=== PATIENT | female | born 1980 | race Caucasian/White ===

== ENCOUNTER 2019-07-05 05:23 | Day surgery (SDC) | payer OTHER ==
[2019-07-04 19:05] VITALS: BMI 29.9
[2019-07-05] MEDS ORDERED: LIDOCAINE HCL/PF 2% SDV 5ML VIAL ONE (07:36)
[2019-07-05] MEDS ORDERED: MIDAZOLAM HCL 2 MG/2 ML SINGLE DOSE VIAL ONE (07:37)
[2019-07-05] MEDS ORDERED: PROPOFOL 20 ML ONE ×2 (07:37)
--- NOTE | 2019-07-05 07:47 | HP ---
Admitting History and Physical - Admission Chief Complaint: Prolonged menses History of Present Illness: 39 yo Para 3 with 3 prior c-sections, is pre op for endometrial ablation. She's been experiencing prolonged menses associated with anemia. History Source: Patient Limitations to Obtaining History: No Limitations - Past Medical History ...LMP: 06/12/19 ...: No ...Para: 3 Heme/Onc: Yes: Anemia - Past Surgical History Past Surgical History: Yes: - Smoking History Smoking history: Never smoked - Alcohol/Substance Use Hx Alcohol Use: No Home Medications - Allergies Allergies/Adverse Reactions: Allergies Allergy/AdvReac Type Severity Reaction Status Date / Time No Known Allergies Allergy Verified 07/05/19 06:47 - Home Medications Home Medications: Ambulatory Orders NK [No Known Home Medication] 05/16/19 Family Medical History Family History: Unremarkable Review of Systems - Review of Systems Constitutional: denies: Weakness Eyes: denies: Blurred Vision HENT: reports: No Symptoms Neck: reports: No Symptoms Cardiovascular: denies: Chest Pain, Palpitations, Shortness of Breath Respiratory: denies: SOB on Exertion Gastrointestinal: denies: Abdominal Pain, Nausea, Vomiting Genitourinary: reports: No Symptoms Breasts: reports: No Symptoms Reported Musculoskeletal: reports: No Symptoms Neurological: reports: No Symptoms Psychiatric: reports: No Symptoms Pain Intensity: 0 Physical Examination Vital Signs: Vital Signs Temperature 98.8 F 07/05/19 06:36 Pulse Rate 71 07/05/19 06:36 Respiratory Rate 18 07/05/19 06:36 Blood Pressure 120/73 07/05/19 06:36 O2 Sat by Pulse Oximetry (%) 100 07/05/19 06:38 Constitutional: No: No Distress Eyes: Yes: Conjunctiva Clear HENT: Yes: Atraumatic Neck: Yes: Supple Cardiovascular: Yes: Regular Rate and Rhythm Respiratory: Yes: Regular Gastrointestinal: Yes: Normal Bowel Sounds Musculoskeletal: Yes: WNL Extremities: Yes: WNL Neurological: Yes: Alert, Oriented ...Motor Strength: WNL Psychiatric: Yes: Alert, Oriented Problem List - Problems (1) Menorrhagia Problems reviewed: Yes Code(s): N92.0 - EXCESSIVE AND FREQUENT MENSTRUATION WITH REGULAR CYCLE Qualifiers: Menorrahagia type: with regular cycle Qualified Code(s): N92.0 - Excessive and frequent menstruation with regular cycle (2) Anemia Problems reviewed: Yes Code(s): D64.9 - ANEMIA, UNSPECIFIED Qualifiers: Iron deficiency anemia type: chronic blood loss Assessment/Plan Menorrhagia Anemia Pre op for endometrial ablation Consent signed Anesthesia to see patient
[2019-07-05] MEDS ORDERED: KETOROLAC TROMETHAMINE 30 MG/1 ML VIAL ONE ×2 (07:59→08:25)
[2019-07-05] MEDS ORDERED: DEXAMETHASONE SOD PHOSPHATE 4 MG/1 ML VIAL ONE (07:59)
[2019-07-05] MEDS ORDERED: ONDANSETRON 4 MG/2 ML VIAL IVPUSH PRN (08:49)
[2019-07-05] MEDS ORDERED: oxyCODONE HCL 5 MG TABLET PO PRN (08:49)
[2019-07-05] MEDS ORDERED: ACETAMINOPHEN 1000 MG/100 ML VIAL (NON FORMULARY) IVPB ONE ×2 (08:50→09:30)
--- NOTE | 2019-07-05 08:52 | OP ---
Operative Note - Note: Operative Date: 07/05/19 Pre-Operative Diagnosis: Menorrhagia Operation: Hysteroscopic endometrial ablation Post-Operative Diagnosis: Same as Pre-op Surgeon: Jazlyn Gaona Anesthesia: General Specimens Removed: None Estimated Blood Loss (mls): 20
[2019-07-05] MEDS ORDERED: LACTATED RINGERS SOLUTION 1,000 ML IV SCH (09:00)
[2019-07-05] MEDS ORDERED: oxyCODONE HCL 5 MG TABLET ONE (12:43)
[2019-07-05] MEDS ORDERED: ONDANSETRON 4 MG/2 ML VIAL ONE (13:00)
[2019-07-05] MEDS ORDERED: oxyCODONE HCL 5 MG TABLET PO ONE (13:30)
[2019-07-05 20:24] VITALS: BP 126/74; PULSE 62; TEMP 94.6
--- NOTE | 2019-07-16 16:21 | OP ---
DATE OF OPERATION: 07/05/2019 PREOPERATIVE DIAGNOSIS: Menorrhagia associated with anemia. POSTOPERATIVE DIAGNOSIS: Menorrhagia associated with anemia. PROCEDURE: Hysteroscopic endometrial ablation. SURGEON: Jazlyn Gaona MD ANESTHESIA: General. COMPLICATIONS: None. ESTIMATED BLOOD LOSS: 5 mL. DESCRIPTION OF PROCEDURE: Patient was taken to the operating room where general anesthesia was administered. Patient was then placed in lithotomy position. She was then prepped and draped in proper sterile fashion. A weighted speculum was placed in the vagina. The anterior lip of the cervix was grasped with a single-tooth tenaculum. Upon activation of the machine, the hysteroscope was then gently introduced into the uterine cavity and hysteroscopy was initiated. The endometrial cavity was visualized; there were several polyps noted in the cavity. Once hysteroscopy was completed, we proceeded with the actual ablation. The ablation procedure continued until complete blanching of the cavity. Upon completion of the procedure, the instrument were removed as indicated. The patient was taken out of lithotomy position. She was taken to PACU in stable condition. JAZLYN GAONA M.D. [id number] MTDD
== END 2019-07-05 17:30 | disposition home or self-care (01) ==
LOC: JASU-SURG 05:23
PROVIDERS: ATTEND Obstetrics & Gynecology
PROC: 0U5B8ZZ Destruction of Endometrium, Via Natural or Artificial Opening Endoscopic (ICD-10-PCS; principal; 2019-07-05 07:30)
DX: N92.0 Excessive and frequent menstruation with regular cycle (principal); D64.9 Anemia, unspecified; N84.0 Polyp of corpus uteri
CPT/HCPCS: 84703; 94760; J0131

== ENCOUNTER 2020-10-10 18:40 | Emergency (ER) | payer OTHER ==
[2020-10-10 18:56] VITALS: BP 133/94; PULSE 78; TEMP 98.7; BMI 28.8
[2020-10-10] MEDS ORDERED: IBUPROFEN 400 MG TABLET (FP) PO ONE ×2 (19:08→19:11)
[2020-10-10] MEDS ORDERED: METHOCARBAMOL 500 MG TABLET PO ONE (19:08)
[2020-10-10] MEDS ORDERED: METHOCARBAMOL 500 MG TABLET ONE (19:11)
== END 2020-10-10 20:30 | disposition home or self-care (01) ==
LOC: JERFT 18:40
DX: M62.830 Muscle spasm of back (principal)
CPT/HCPCS: 72100-TC-FY; 99284-25

== ENCOUNTER 2021-03-25 23:50 | Observation (INO) | payer OTHER ==
[2021-03-26 00:08] VITALS: BMI 29.0
[2021-03-26] MEDS ORDERED: ACETAMINOPHEN 500 MG TABLET (FP) PO ONE (00:41)
[2021-03-26 01:53] LABS: BASO % 0.6 % (0-2.0); EOS % 1.1 % (0-4.5); HEMOGLOBIN 12.4 GM/dL (10.7-15.3); LYMPH % 23.1 % (8-40); MCH 28.8 pg (25.7-33.7); MCHC 33.4 g/dl (32.0-36.0); NEUT % 69.2 % (42.8-82.8); PLATELET COUNT 380 10^3/uL (134-434); RDW 13.3 % (11.6-15.6); WHITE BLOOD COUNT 13.1 K/mm3 (4.0-10.0)
[2021-03-26 02:12] LABS: CHLORIDE 106 mmol/L (98-107); SODIUM 138 mmol/L (136-145)
[2021-03-26 02:14] LABS: ALBUMIN 3.7 g/dl (3.4-5.0); BLOOD UREA NITROGEN 21.3 mg/dL (7-18); CALCIUM 10.3 mg/dL (8.5-10.1); CO2 25 mmol/L (21-32)
[2021-03-26 02:15] LABS: GLUCOSE,RANDOM 90 mg/dL (74-106)
[2021-03-26 02:17] LABS: CREATININE 0.8 mg/dL (0.55-1.3); SGOT/AST 9 U/L (15-37); SGPT/ALT 29 U/L (13-61)
[2021-03-26 02:19] LABS: BILIRUBIN,TOTAL 0.1 mg/dL (0.2-1); TOT PROT 7.5 g/dl (6.4-8.2)
[2021-03-26 02:20] LABS: ALK PHOS 74 U/L (45-117)
[2021-03-26] MEDS ORDERED: ASPIRIN 81 MG CHEWABLE TABLETS PO ONE ×2 (02:31)
[2021-03-26 02:45] LABS: ANION GAP 6 MMOL/L (8-16)
[2021-03-26] MEDS ORDERED: ASPIRIN 81 MG CHEWABLE TABLETS ONE (03:00)
[2021-03-26] MEDS ORDERED: KETOROLAC TROMETHAMINE 15 MG/ML VIAL IVPUSH ONE (05:52)
[2021-03-26] MEDS ORDERED: SODIUM CHLORIDE 1,000 ML IV SCH (06:00)
[2021-03-26] MEDS ORDERED: KETOROLAC TROMETHAMINE 15 MG/ML VIAL ONE (06:21)
[2021-03-26 06:35] VITALS: BP 119/75; PULSE 72; TEMP 97.5
[2021-03-26 06:51] LABS: HEMATOCRIT 36.8 % (32.4-45.2); HEMOGLOBIN 12.4 GM/dL (10.7-15.3); MCH 29.5 pg (25.7-33.7); MCHC 33.9 g/dl (32.0-36.0); MEAN CELL VOLUME 87.1 fl (80-96); PLATELET COUNT 359 10^3/uL (134-434); RBC 4.22 M/mm3 (3.60-5.2); RDW 13.4 % (11.6-15.6); WHITE BLOOD COUNT 12.2 K/mm3 (4.0-10.0)
[2021-03-26 07:04] LABS: CHLORIDE 109 mmol/L (98-107); SODIUM 139 mmol/L (136-145)
[2021-03-26 07:06] LABS: ANION GAP 5 MMOL/L (8-16); CALCIUM 10.1 mg/dL (8.5-10.1); CO2 25 mmol/L (21-32)
[2021-03-26 07:07] LABS: GLUCOSE,RANDOM 84 mg/dL (74-106); MAGNESIUM 2.2 mg/dL (1.8-2.4)
[2021-03-26 07:09] LABS: CHOLESTEROL 177 mg/dL (50-200)
[2021-03-26 07:10] LABS: CREATININE 0.8 mg/dL (0.55-1.3); PHOSPHOROUS 3.7 mg/dL (2.5-4.9)
[2021-03-26 07:11] LABS: LDL CHOLESTEROL (ONLY SJRH) 104 mg/dL (5-100); TRIGLYCERIDES 88 mg/dL (0-150)
[2021-03-26 07:12] LABS: HDL CHOLESTEROL 49 mg/dL (40-60)
== END 2021-03-26 15:00 | disposition home or self-care (01) ==
LOC: JER 23:50 → JERBED 03-26 03:50 → INTOOBSV 03-26 04:39 → UNDOADMOB 03-26 04:39
PROVIDERS: ADMIT Internal Medicine; ATTEND Internal Medicine
PROC: 3E0333Z Introduction of Anti-inflammatory into Peripheral Vein, Percutaneous Approach (ICD-10-PCS; principal; 2021-03-26)
PROC: 3E0337Z Introduction of Electrolytic and Water Balance Substance into Peripheral Vein, Percutaneous Approach (ICD-10-PCS; 2021-03-26)
DX: M50.80 Other cervical disc disorders, unspecified cervical region (principal); N92.0 Excessive and frequent menstruation with regular cycle; Z29.9 Encounter for prophylactic measures, unspecified
CPT/HCPCS: 36415; 71046-TC-FY; 71250-TC; 80048; 80053; 80061; 82550; 83036; 83735; 84100; 84436; 84439; 84443; 84484; 85025; 85027; 85651; 93005; 93010; 93306-TC; 96361; 96374; 99285-25; C9803; G0378; U0003; U0005

== ENCOUNTER 2021-10-22 20:42 | Observation (INO) | payer OTHER ==
[2021-10-22 20:46] VITALS: BMI 29.0
[2021-10-22] MEDS ORDERED: ACETAMINOPHEN 1000 MG/100 ML BAG IVPB ONE (23:10)
[2021-10-22] MEDS ORDERED: KETOROLAC TROMETHAMINE 60 MG/2 ML VIAL IVPUSH ONE (23:10)
[2021-10-22] MEDS ORDERED: morphine CARPU-JECT 4 MG/1 ML DISP.SYRIN IVPUSH ONE (23:11)
[2021-10-22] MEDS ORDERED: morphine SULFATE 4 MG/ML VIAL ONE (23:18)
[2021-10-22] MEDS ORDERED: ACETAMINOPHEN INJECTION 100 ML IVPB ONE (23:18)
[2021-10-22] MEDS ORDERED: KETOROLAC TROMETHAMINE 30 MG/1 ML VIAL ONE (23:18)
[2021-10-22 23:40] LABS: BASO % 0.9 % (0-2.0); EOS % 2.5 % (0-4.5); HEMATOCRIT 36.8 % (32.4-45.2); HEMOGLOBIN 12.5 GM/dL (10.7-15.3); LYMPH % 33.1 % (8-40); MCH 28.5 pg (25.7-33.7); MEAN CELL VOLUME 83.8 fl (80-96); MEAN PLT VOLUME 8.1 fl (7.5-11.1); MONO % 6.9 % (3.8-10.2); NEUT % 56.6 % (42.8-82.8); PLATELET COUNT 353 10^3/uL (134-434); RBC 4.39 M/mm3 (3.60-5.2); RDW 13.9 % (11.6-15.6); WHITE BLOOD COUNT 7.1 K/mm3 (4.0-10.0)
[2021-10-22 23:46] LABS: INR 1.09 (0.83-1.09); PROTHROMBIN TIME (PATIENT) 12.5 SEC (9.7-13.0)
[2021-10-23 00:11] LABS: BLOOD UREA NITROGEN 13.1 mg/dL (7-18)
[2021-10-23 00:14] LABS: CREATININE 0.7 mg/dL (0.55-1.3)
[2021-10-23 00:15] LABS: BILIRUBIN,TOTAL 0.2 mg/dL (0.2-1); TOT PROT 7.7 g/dl (6.4-8.2)
[2021-10-23] MEDS ORDERED: KETOROLAC TROMETHAMINE 15 MG/ML VIAL IVPUSH PRN (06:00)
[2021-10-23] MEDS ORDERED: ACETAMINOPHEN 1000 MG/100 ML BAG IVPB PRN (06:00)
[2021-10-23 06:32] LABS: CALCIUM 10.1 mg/dL (8.5-10.1)
[2021-10-23 06:33] LABS: BLOOD UREA NITROGEN 11.8 mg/dL (7-18)
[2021-10-23 06:36] LABS: CREATININE 0.7 mg/dL (0.55-1.3)
[2021-10-23 07:01] LABS: EOS % 2.1 % (0-4.5); HEMATOCRIT 37.8 % (32.4-45.2); HEMOGLOBIN 12.6 GM/dL (10.7-15.3); LYMPH % 26.8 % (8-40); MCH 28.1 pg (25.7-33.7); MCHC 33.3 g/dl (32.0-36.0); MEAN CELL VOLUME 84.5 fl (80-96); MEAN PLT VOLUME 8.5 fl (7.5-11.1); NEUT % 64.1 % (42.8-82.8); PLATELET COUNT 353 10^3/uL (134-434); RBC 4.47 M/mm3 (3.60-5.2); RDW 13.7 % (11.6-15.6); WHITE BLOOD COUNT 6.9 K/mm3 (4.0-10.0)
[2021-10-23] MEDS ORDERED: LIDOCAINE 5% TOPICAL PATCH ONE (08:29)
[2021-10-23] MEDS ORDERED: LIDOCAINE 5% TOPICAL PATCH TP SCH (10:00)
[2021-10-23] MEDS ORDERED: oxyCODONE HCL 5 MG TABLET PO PRN (10:07)
[2021-10-23 13:05] VITALS: BP 118/63; PULSE 82; TEMP 98
[2021-10-23] MEDS ORDERED: LIDOCAINE PATCH REMOVAL MC SCH (22:00)
== END 2021-10-23 13:00 | disposition home or self-care (01) ==
LOC: JER 20:42 → JERBED 10-23 00:37 → INTOOBSV 10-23 00:37
PROVIDERS: ADMIT Internal Medicine; ATTEND Family Medicine
PROC: 3E033NZ Introduction of Analgesics, Hypnotics, Sedatives into Peripheral Vein, Percutaneous Approach (ICD-10-PCS; principal; 2021-10-23)
PROC: 3E0333Z Introduction of Anti-inflammatory into Peripheral Vein, Percutaneous Approach (ICD-10-PCS; 2021-10-23)
DX: M79.604 Pain in right leg (principal); D64.9 Anemia, unspecified; M54.50 Low back pain, unspecified
CPT/HCPCS: 36415; 72131-TC; 72148-TC; 80048; 80053; 84703; 85025; 85610; 86850; 86900; 86901; 93005; 93010; 96374; 96375; 99285-25; C9803; G0378; U0003; U0005

== ENCOUNTER 2022-03-11 08:41 | Day surgery (SDC) | payer OTHER ==
[2022-03-08 18:30] VITALS: BMI 30.7
[2022-03-11] MEDS ORDERED: MIDAZOLAM HCL 2 MG/2 ML SINGLE DOSE VIAL ONE (09:11)
[2022-03-11] MEDS ORDERED: DEXAMETHASONE SOD PHOSPHATE 10 MG/1 ML VIAL ONE (09:12)
[2022-03-11] MEDS ORDERED: ROPIVACAINE HCL/PF 100 MG/20 ML VIAL ONE (09:12)
[2022-03-11] MEDS ORDERED: BUPIVACAINE HCL/EPINEPHRINE/PF 30 ML VIAL IJ ONE (09:17)
[2022-03-11] MEDS ORDERED: PROPOFOL 20 ML ONE ×4 (09:59→11:08)
[2022-03-11] MEDS ORDERED: DEXAMETHASONE SOD PHOSPHATE 4 MG/1 ML VIAL ONE (10:01)
[2022-03-11] MEDS ORDERED: KETOROLAC TROMETHAMINE 30 MG/1 ML VIAL ONE (10:01)
[2022-03-11] MEDS ORDERED: ONDANSETRON 4 MG/2 ML VIAL ONE (10:01)
[2022-03-11] MEDS ORDERED: ceFAZolin SODIUM 1 GM VIAL ONE (10:01)
[2022-03-11] MEDS ORDERED: SUCCINYLCHOLINE CHLORIDE 200 MG/10 ML SYRINGE ONE (10:29)
[2022-03-11] MEDS ORDERED: oxyCODONE HCL 5 MG TABLET PO PRN (11:58)
[2022-03-11] MEDS ORDERED: ONDANSETRON 4 MG/2 ML VIAL IVPUSH PRN (11:58)
[2022-03-11] MEDS ORDERED: LACTATED RINGERS SOLUTION 1,000 ML IV SCH (12:00)
[2022-03-11 12:51] VITALS: RESP 18; TEMP 98.1
[2022-03-11 13:29] VITALS: BP 118/76; PULSE 75
== END 2022-03-11 13:41 | disposition home or self-care (01) ==
LOC: FASU 08:41
PROVIDERS: ATTEND Orthopaedic Surgery
PROC: 0RBJ4ZZ Excision of Right Shoulder Joint, Percutaneous Endoscopic Approach (ICD-10-PCS; principal; 2022-03-11 10:18)
PROC: 0LS34ZZ Reposition Right Upper Arm Tendon, Percutaneous Endoscopic Approach (ICD-10-PCS; 2022-03-11 10:18)
PROC: 0PB94ZZ Excision of Right Clavicle, Percutaneous Endoscopic Approach (ICD-10-PCS; 2022-03-11 10:18)
DX: M75.111 Incomplete rotator cuff tear or rupture of right shoulder, not specified as traumatic (principal); M67.813 Other specified disorders of tendon, right shoulder; M75.21 Bicipital tendinitis, right shoulder; M65.811 Other synovitis and tenosynovitis, right shoulder; M75.01 Adhesive capsulitis of right shoulder; M19.011 Primary osteoarthritis, right shoulder
CPT/HCPCS: 84703; 94760; J1100

== ENCOUNTER 2022-09-14 08:49 | Emergency (ER) | payer OTHER ==
[2022-09-14 09:40] VITALS: BP 137/83; PULSE 76; RESP 18; TEMP 97.3; BMI 29.5
[2022-09-14] MEDS ORDERED: KETOROLAC TROMETHAMINE 15 MG/ML VIAL IVPUSH ONE (10:15)
[2022-09-14] MEDS ORDERED: FAMOTIDINE 20 MG/50 ML IVPB 20 MG/50 ML MG IVPB ONE ×2 (10:15→11:15)
[2022-09-14] MEDS ORDERED: KETOROLAC TROMETHAMINE 15 MG/ML VIAL ONE (11:15)
[2022-09-14 12:37] LABS: BASO % 0.6 % (0-2.0); EOS % 1.5 % (0-4.5); HEMATOCRIT 41.5 % (32.4-45.2); HEMOGLOBIN 13.8 GM/dL (10.7-15.3); MCH 28.5 pg (25.7-33.7); MCHC 33.3 g/dl (32.0-36.0); MEAN CELL VOLUME 85.4 fl (80-96); MEAN PLT VOLUME 8.8 fl (7.5-11.1); MONO % 5.8 % (3.8-10.2); NEUT % 60.1 % (42.8-82.8); PLATELET COUNT 348 10^3/uL (134-434); RBC 4.85 M/mm3 (3.60-5.2); RDW 13.6 % (11.6-15.6); WHITE BLOOD COUNT 7.3 K/mm3 (4.0-10.0)
[2022-09-14 12:41] LABS: EPI CELLS 11 /uL (0-25.1); HYALINE CASTS 1 /uL (0-3.1); URINE APPEARANCE CLEAR; URINE BACTERIA 577 /uL (0-1359); URINE BILIRUBIN NEGATIVE (NEGATIVE); URINE COLOR YELLOW; URINE GLUCOSE (UA) NEGATIVE (NEGATIVE); URINE KETONE TRACE (NEGATIVE); URINE LEUK ESTERASE 1+ (NEGATIVE); URINE NITRITE NEGATIVE (NEGATIVE); URINE PROTEIN NEGATIVE (NEGATIVE); URINE RBC 17 /uL (0-23.9); URINE UROBILINOGEN 0.2 mg/dL (0.2-1.0); URINE WBC 18 /uL (0-25.8)
[2022-09-14 13:10] LABS: BLOOD UREA NITROGEN 8.2 mg/dL (7-18); CALCIUM 10.8 mg/dL (8.5-10.1)
[2022-09-14 13:13] LABS: CREATININE 0.7 mg/dL (0.55-1.3)
[2022-09-14 13:15] LABS: BILIRUBIN,TOTAL 0.5 mg/dL (0.2-1); TOT PROT 7.8 g/dl (6.4-8.2)
[2022-09-14 13:27] LABS: HCG,QUALITATIVE URINE NEGATIVE
== END 2022-09-14 15:14 | disposition home or self-care (01) ==
LOC: JER 08:49
PROC: 3E033GC Introduction of Other Therapeutic Substance into Peripheral Vein, Percutaneous Approach (ICD-10-PCS; principal; 2022-09-14)
PROC: 3E0333Z Introduction of Anti-inflammatory into Peripheral Vein, Percutaneous Approach (ICD-10-PCS; 2022-09-14)
DX: N83.202 Unspecified ovarian cyst, left side (principal)
CPT/HCPCS: 36415; 76830-TC; 80053; 81003; 83690; 84703; 85025; 87086; 99284-25